=== PATIENT | female | born 2000 | race Caucasian/White ===

== ENCOUNTER 2025-01-23 05:51 | Emergency (ER) | payer SELFPAY ==
[~2025-01-23] VITALS: Ht 170.2 cm; Wt 75.0 kg
[2025-01-23 05:54] VITALS: O2SAT 99
[2025-01-23 07:11] LABS: BASOPHILS % 0.2 % (0.0-2.0); EOSINOPHILS % 0.8 % (0.0-5.0); HEMATOCRIT. 38.0 % (36.0-48.0); HEMOGLOBIN. 12.1 g/dL (12.0-16.0); LYMPHOCYTES % 15.5 % (20.0-50.0); MEAN PLATELET VOLUME 10.0 fl (7.4-10.4); MONOCYTES % 6.7 % (2.0-8.0); NEUTROPHILS % 76.8 % (40.0-76.0); PLATELET 250 x1000/uL (130-400); RED BLOOD CELL COUNT 5.10 mill/uL (4.2-5.4); RED CELL DISTRIBUTION WIDTH 16.6 % (11.6-14.6)
[2025-01-23 07:21] LABS: CREATININE 0.8 mg/dL (0.6-1.0); UREA NITROGEN BLOOD 7 mg/dL (9-23)
[2025-01-23 07:22] LABS: TROPONIN I HIGH SENSITIVITY 15 ng/L (3.0-34)
[2025-01-23 07:41] LABS: HCG SCREEN NEGATIVE
[2025-01-23 08:22] LABS: TROPONIN I HIGH SENSITIVITY 13 ng/L (3.0-34)
[2025-01-23] MEDS ORDERED: TOPUD PO (08:32)
[2025-01-23 08:49] VITALS: BP 128/70; PULSE 82; RESP 16; TEMP 36.8; O2SAT 100
== END 2025-01-23 08:51 | disposition home or self-care (01) ==
LOC: ER 05:51
DX: R07.89 Other chest pain (principal); R06.00 Dyspnea, unspecified
CPT/HCPCS: 36415; 71045; 80048; 81025; 84484; 84703; 85025; 85379; 93005; 99285